=== PATIENT | male | born 1985 | race Two or more races ===

== ENCOUNTER 2020-03-28 16:00 | Emergency (ER) | payer SELFPAY ==
[~2020-03-28] VITALS: Ht 175.3 cm; Wt 70.9 kg
[2020-03-28 16:05] VITALS: BP 110/76
[2020-03-28] MEDS ORDERED: PERTUSS(ACELL),DIPH,TET VAC/PF 0.5 ML VIAL IM ONE (17:00)
== END 2020-03-28 17:22 | disposition home or self-care (01) ==
LOC: EMS 16:00
DX: S81.812A Laceration without foreign body, left lower leg, initial encounter (principal); W26.0XXA Contact with knife, initial encounter; Y93.89 Activity, other specified; Y92.89 Other specified places as the place of occurrence of the external cause; Y99.8 Other external cause status
CPT/HCPCS: 90471; 90715

== ENCOUNTER 2020-04-02 22:04 | Emergency (ER) | payer MEDICAID ==
[~2020-04-02] VITALS: Ht 175.3 cm; Wt 70.9 kg
[2020-04-02 23:57] VITALS: BP 120/80
== END 2020-04-03 00:46 | disposition home or self-care (01) ==
LOC: EMS 22:06
DX: S93.401A Sprain of unspecified ligament of right ankle, initial encounter (principal); S80.811A Abrasion, right lower leg, initial encounter; V09.9XXA Pedestrian injured in unspecified transport accident, initial encounter; Y93.01 Activity, walking, marching and hiking; Y92.481 Parking lot as the place of occurrence of the external cause; Y99.8 Other external cause status

== ENCOUNTER 2021-09-11 02:53 | Emergency (ER) | payer SELFPAY ==
[~2021-09-11] VITALS: Ht 175.3 cm; Wt 76.4 kg
[2021-09-11 02:56] VITALS: BP 137/85
[2021-09-11] MEDS ORDERED: PredniSONE 20 MG TABLET PO ONE (03:30)
[2021-09-11] MEDS ORDERED: DiphenhydrAMINE HCL 25 MG CAPSULE PO ONE (03:30)
== END 2021-09-11 13:17 | disposition home or self-care (01) ==
LOC: EMS 02:54
DX: L50.9 Urticaria, unspecified (principal); F19.10 Other psychoactive substance abuse, uncomplicated
CPT/HCPCS: 99282; Z7502; Z7610

== ENCOUNTER 2025-02-13 22:59 | Emergency (ER) | payer OTHER ==
[~2025-02-13] VITALS: Ht 175.3 cm; Wt 80.0 kg
[2025-02-14] MEDS: AMOX TR/POT CLAV 875 MG/125 MG TABLET PO ONE (00:24)
[2025-02-14] MEDS ORDERED: BACITRACIN 0.9 GM PACKET OINTMENT TP ONE (00:30)
[2025-02-14 00:34] VITALS: BP 131/76; PULSE 98; RESP 18; O2SAT 97
[2025-02-14] MEDS ORDERED: AMOX-457 PO (00:49)
== END 2025-02-14 01:41 | disposition home or self-care (01) ==
LOC: EMS 23:15
DX: S01.85XA Open bite of other part of head, initial encounter (principal); W54.0XXA Bitten by dog, initial encounter; Y93.89 Activity, other specified; Y92.89 Other specified places as the place of occurrence of the external cause; Y99.8 Other external cause status
CPT/HCPCS: 99283